=== PATIENT | male | born 1980 | race Two or more races ===

== ENCOUNTER 2018-04-03 19:04 | Emergency (ER) | payer OTHER ==
[~2018-04-03] VITALS: Ht 185.4 cm; Wt 147.4 kg
[2018-04-03] MEDS ORDERED: DIOVAN160 M1 (19:09)
[2018-04-03] MEDS ORDERED: FORTAMET1000 MG (19:21)
== END 2018-04-03 20:42 | disposition home or self-care (01) ==
LOC: ER 19:04
DX: J06.9 Acute upper respiratory infection, unspecified (principal)

== ENCOUNTER → 2019-11-11 | Outpatient (CLI) | payer OTHER ==
[~2019-11-11] MED LIST: DIOVAN160 M1; FORTAMET1000 MG
== END | disposition home or self-care (01) ==
LOC: RAD 14:09
DX: M79.642 Pain in left hand (principal)

== ENCOUNTER 2021-05-01 15:33 | Outpatient (CLI) | payer OTHER | END 2021-05-01 15:53 | disposition home or self-care (01) | LOC: MRI 15:33 | PROVIDERS: ATTEND Internal Medicine Sports Medicine | DX: M25.562 Pain in left knee (principal); S80.02XS Contusion of left knee, sequela; X58.XXXS Exposure to other specified factors, sequela | CPT/HCPCS: 73721 ==

== ENCOUNTER 2022-06-01 09:03 | Outpatient (CLI) | payer OTHER | END 2022-06-01 09:47 | disposition home or self-care (01) | LOC: SONOGRAMA 09:03 | PROVIDERS: ATTEND Internal Medicine | DX: G47.31 Primary central sleep apnea (principal); K21.9 Gastro-esophageal reflux disease without esophagitis; K76.0 Fatty (change of) liver, not elsewhere classified ==

== ENCOUNTER 2022-11-25 08:57 | Emergency (ER) | payer OTHER ==
[~2022-11-25] VITALS: Ht 182.9 cm; Wt 149.7 kg
== END 2022-11-25 12:00 | disposition home or self-care (01) ==
LOC: ER 08:57
DX: J06.9 Acute upper respiratory infection, unspecified (principal); Z20.822 Contact with and (suspected) exposure to COVID-19; I10 Essential (primary) hypertension; E11.9 Type 2 diabetes mellitus without complications; Z79.84 Long term (current) use of oral hypoglycemic drugs

== ENCOUNTER 2024-05-23 16:04 | Emergency (ER) | payer OTHER ==
[~2024-05-23] VITALS: Ht 182.9 cm; Wt 118.8 kg
[2024-05-23] MEDS ORDERED: MOUNJARO15 MG/0.5 (16:33)
[2024-05-23] MEDS ORDERED: TENORETIC 1001 EACH (16:34)
[2024-05-23] MEDS ORDERED: LIPITOR40 M1 (16:34)
[2024-05-23] MEDS ORDERED: MAGNESIUM HYDROXIDE 30 ML BLIST.PACK PO ONE (18:25)
[2024-05-23] MEDS ORDERED: MINERAL OIL 30 ML BLIST.PACK ONE (18:25)
[2024-05-23] MEDS ORDERED: LACTULOSE 20 G/30 ML BLIST.PACK ONE (18:25)
[2024-05-23] MEDS ORDERED: MAGNESIUM HYDROXIDE 400 MG/5 ML ML PO ONE (18:30)
[2024-05-23] MEDS ORDERED: MINERAL OIL 30 ML BLIST.PACK PO ONE (18:30)
[2024-05-23] MEDS ORDERED: LACTULOSE 20 G/30 ML BLIST.PACK PO ONE (18:30)
[2024-05-23] MEDS ORDERED: BARIUM SULFATE 450 ML ORAL.SUSP PO ONE (19:24)
[2024-05-23 19:40] LABS: HEMATOCRIT 44.3 % (39.0-48.0); HEMOGLOBIN 15.6 g/dL (13-16.00); MEAN CORPUSCULAR HEMOGLOBIN 30.2 pg (27.00-32.0); MEAN CORPUSCULAR HGB CONC 35.2 g/dl (32.0-36.0); PLATELET COUNT 338 K/uL (150-450); RED BLOOD COUNT 5.15 M/uL (4.00-6.00); RED CELL DISTRIBUTION WIDTH 14.1 % (11.5-14.5)
[2024-05-23] MEDS ORDERED: DIATRIZOATE MEGLUMINE, SODIUM 30 ML BOTTLE PO ONE (19:45)
[2024-05-23] MEDS ORDERED: DIATRIZOATE MEGLUMINE, SODIUM 30 ML BOTTLE ONE (19:49)
[2024-05-23 20:52] LABS: ALBUMIN 4.1 gm/dL (3.4-5.0); BILIRUBIN TOTAL 0.79 mg/dL (0.3-1.2); CALCIUM 9.8 mg/dL (8.5-10.1); CREATININE SERUM 0.97 mg/dL (0.70-1.30); GFR 83.32; GLOBULINA 3.7 G/DL (2.4-3.5); POTASSIUM 3.94 mEq/L (3.5-5.1); TOTAL PROTEIN 7.8 gm/dL (6.4-8.2)
== END 2024-05-23 23:53 | disposition home or self-care (01) ==
LOC: ER 16:05
PROVIDERS: Emergency Medicine
DX: K59.00 Constipation, unspecified (principal); E11.9 Type 2 diabetes mellitus without complications; Z79.84 Long term (current) use of oral hypoglycemic drugs

== ENCOUNTER 2024-07-30 07:14 | Outpatient (CLI) | payer OTHER ==
[~2024-07-30 07:14] MED LIST changes: +LIPITOR40 M1; +MOUNJARO15 MG/0.5; +TENORETIC 1001 EACH
== END 2024-07-30 07:23 | disposition home or self-care (01) ==
LOC: SONOGRAMA 07:14
DX: K76.0 Fatty (change of) liver, not elsewhere classified (principal)